=== PATIENT | female | born 1965 | race Caucasian/White ===

== ENCOUNTER → 2016-09-11 | Outpatient (CLI) | payer OTHER ==
[~2016-09-11] MED LIST: FLAGYL500 MG PO; MOBIC15 MG PO; NEOMYCIN500 MG PO; NICOTINE PATCH1 EAC1 TRANS; NORCO 5-325 TA1 EACH PO
== END | disposition disaster alternative care site (69) ==
LOC: LKCL 11:08
DX: Z01.89 Encounter for other specified special examinations (principal)

== ENCOUNTER 2016-09-22 13:00 | Inpatient (IN) | payer OTHER ==
[~2016-09-22] VITALS: Ht 165.1 cm; Wt 82.2 kg
--- NOTE | ~2016-09-22 | OR ---
PATIENT'S NAME: [facility]BE [facility] AGE: 51 [address] ROOM: [address] [address] [place] [facility] [place]: 09[place]29[place] OR/Procedure Report DISCHARGE DATE: FAMILY PHYSICIAN: MITA CHERRY MD ATTENDING PHYSICIAN: Miguel Allan SURGEON: Miguel Allan MD [facility] OPERATOR: Елена Moreno PA-C. DATE OF PROCEDURE: 09/29/2016 PREOPERATIVE DIAGNOSIS: Sigmoid colon adenocarcinoma. POSTOPERATIVE DIAGNOSIS: Sigmoid colon adenocarcinoma. PROCEDURE: Laparoscopic sigmoid colectomy. FINDINGS: The lesion was present within the sigmoid colon. Anastomosis appeared to lie tension-free and was leak tested at the conclusion of the case. ESTIMATED BLOOD LOSS: 50 mL. COMPLICATIONS: None. INDICATIONS: The patient is a 51-year-old female who presented after having a mass in the sigmoid colon. This revealed polyp with adenocarcinoma present within this. We discussed sigmoid colectomy with the patient. The risks, benefits, and alternatives, including but not limited to, bleeding, infection, anastomotic leak, and injury to other viscera. She understood the risks and elected to proceed. DESCRIPTION OF PROCEDURE: The patient was taken into the operating room. She was supine, given IV sedation, and subsequently intubated. A Shipley catheter was inserted. She was placed in stirrups. Her abdomen was prepped with ChloraPrep and sterilely draped. Local anesthetic was infiltrated inferior to the umbilicus. A transverse incision was created. The abdomen was elevated. A Veress needle was inserted. Pneumoperitoneum was induced. Following this, a 5-mm trocar was then inserted followed by insertion of the camera. There was no injury from an initial trocar placement. Two more trocars were then positioned, a 5 mm right mid abdominal and a 12 mm right lower quadrant. These were both inserted under direct visualization. A grasper was then inserted into the abdomen. The patient was placed in reverse Trendelenburg and rotated to her right. We were able to identify the base of the mesentery. A window was created. Using a medial and lateral dissection, the ureter was able to be identified. We then divided the inferior mesenteric artery and vein in order to gain adequate mobilization. We then turned our attention PATIENT'S NAME: KOBE [facility] AGE: 51 Y [address] ROOM: [id number] [place], [place] [address] [place] [facility] [place]: 09/29/2016 OR/Procedure Report DISCHARGE DATE: FAMILY PHYSICIAN: MITA CHERRY MD ATTENDING PHYSICIAN: Miguel Allan towards the pelvis. The peritoneum was scored on the right of the colon using blunt dissection. We were able to elevate the mesentery down into the pelvis. The tattoo was identified, this was above the peritoneal reflection. We had an adequate distal margin and divided the mesentery in this area with the EnSeal device. The lateral attachments were then incised along the line of Toldt, mobilizing the sigmoid colon and descending colon. This allowed adequate mobilization to create an anastomosis. A laparoscopic KANDACE stapler was then inserted and fired across the rectum, which completely mobilized the sigmoid colon. The bowel appeared to be adequately mobilized. A Pfannenstiel type incision was then created, the abdominal cavity entered, and an Juanjose wound protector was placed. The bowel was then delivered through the incision. Our proximal resection site was selected. A pursestring clamp was placed across this. A 2-0 Prolene suture was placed through the pursestring clamp and a Luz Elena was on the distal end. The bowel was then divided and passed off as specimen. The pursestring clamp was then removed, the sizers were then placed, a 29 EEA stapler was selected, an anvil was inserted into the descending colon. This was placed. The pursestring suture was secured. This was then allowed to fall back into the abdominal cavity. The fascia of the Pfannenstiel incision was then closed with 0 PDS suture. CO2 was then placed back into the abdominal cavity. CO2 was placed back into the abdominal cavity. The dilator was then inserted into the rectal stump and was advanced easily. The EEA stapler was then inserted, the spike was placed through the rectal stump near the staple line. The anvil was then docked onto the spike. The stapler was closed and fired. The stapler was removed. There were 2 complete rings present after removal of this. The anastomosis was leak tested under water. There were no bubbles present. The operative field was inspected and appeared hemostatic. The anastomosis appeared tension-free. The CO2 was then released. The trocars were removed. The fascia of the 12-mm trocar site was closed with 0 Vicryl suture followed by skin closure of all incisions with 4-0 Monocryl suture. Steri-Strips and sterile dressings were placed. The patient was extubated and sent to recovery in good condition. MIGUEL J MD MARIA EUGENIA ALLAN/steve /[id number] d: 09/29/162005 t: 10/09/16 1502, OPERATIVE SUMMARY
[2016-09-22] MEDS ORDERED: MOBIC15 MG PO (13:12)
[2016-09-22] MEDS ORDERED: NEOMYCIN500 MG PO (13:13)
[2016-09-22] MEDS ORDERED: FLAGYL500 MG PO (13:13)
[2016-09-30 05:34] LABS: HEMATOCRIT 37.1 % (33.0-46.0); HEMOGLOBIN 12.6 g/dL (10.0-15.0); MCH 32.2 pg (27.0-34.0); MCV 94.9 fl (83.0-98.0); MPV 9.6 fl (9.4-12.4); PLATELET COUNT 238 K/uL (150-450); RBC 3.91 M/uL (3.50-5.50); RDW-CV 12.6 % (11.9-14.6); WBC 14.8 K/uL (4.0-11.0)
[2016-09-30 05:52] LABS: CALCIUM 8.1 mg/dL (8.5-10.5); CREATININE 1.1 mg/dL (0.5-1.1)
[2016-09-30 06:12] LABS: ABSOLUTE NEUTROPHIL CT (ANC) 10.5 K/uL (1.8-7.8); BANDED NEUTROPHIL # 0.7 K/uL (0.0-0.1); BANDED NEUTROPHILS % 5 %; LYMPHOCYTE # 2.8 K/uL (0.8-4.0); LYMPHOCYTE % 18 %; MONOCYTE # 1.5 K/uL (0.0-1.0); SEGMENTED NEUTROPHIL # 9.8 K/uL (1.8-7.8); SEGMENTED NEUTROPHIL % 66 %
[2016-10-01 05:12] LABS: BASOPHIL # 0.1 K/uL (0.0-0.2); BASOPHIL % 0.7 %; EOSINOPHIL # 0.1 K/uL (0.0-0.5); EOSINOPHIL % 1.5 %; HEMATOCRIT 37.5 % (33.0-46.0); HEMOGLOBIN 12.3 g/dL (10.0-15.0); IMMATURE GRANULOCYTE % 0.4 %; LYMPHOCYTE # 3.3 K/uL (0.8-4.0); LYMPHOCYTE % 36.2 %; MCH 31.3 pg (27.0-34.0); MCHC 32.8 gm/dL (32.0-36.5); MCV 95.4 fl (83.0-98.0); MONOCYTE # 0.7 K/uL (0.0-1.0); MONOCYTE % 7.4 %; MPV 9.8 fl (9.4-12.4); NEUTROPHIL % 53.8 %; NRBC % 0 /100WBC (0-0.00); PLATELET COUNT 234 K/uL (150-450); RBC 3.93 M/uL (3.50-5.50); RDW-CV 12.5 % (11.9-14.6); WBC 9.2 K/uL (4.0-11.0)
[2016-10-01 05:17] LABS: ANION GAP 9.6 (10.0-19.0); BLOOD UREA NITROGEN 5 mg/dL (6-24); CALCIUM 8.3 mg/dL (8.5-10.5); CHLORIDE 108 mMol/L (96-110); CO2 30 mMol/L (22-32); CREATININE 0.7 mg/dL (0.5-1.1); ESTIMATED GFR (MDRD EQUATION) > 60; PHOSPHORUS 2.4 mg/dL (2.5-4.9); POTASSIUM 3.6 mMol/L (3.7-5.1); SODIUM 144 mMol/L (135-145)
[2016-10-02] MEDS ORDERED: NICOTINE PATCH1 EAC1 TRANS (08:21)
[2016-10-02] MEDS ORDERED: NORCO 5-325 TA1 EACH PO (08:23)
== END 2016-10-02 10:15 | disposition disaster alternative care site (69) | DRG 331 ==
LOC: GMSU 09-29 09:19
PROVIDERS: Physician Assistant; ADMIT Surgery
PROC: 0DTN4ZZ Resection of Sigmoid Colon, Percutaneous Endoscopic Approach (ICD-10-PCS; principal; 2016-09-29)
DX: C18.7 Malignant neoplasm of sigmoid colon (principal)
CPT/HCPCS: C9113; C9290; J0131; J0694; J1100; J1170; J1650; J2001; J2405; J3010; J7030; J7120